=== PATIENT | female | born 1945 | race Caucasian/White ===

== ENCOUNTER 2017-01-17 07:03 | Day surgery (SDC) | payer OTHER ==
[2017-01-11 11:48] LABS: HEMATOCRIT 40.3 % (36.0-48.0); HEMOGLOBIN 14.2 g/dL (12.0-16.0)
[2017-01-11 11:56] LABS: BUN (BLOOD UREA NITROGEN) 13 MG/DL (6-23); CALCIUM, SERUM 9.1 MG/DL (8.5-10.4); CHLORIDE, SERUM 108 MMOL/L (96-112); CO2 (CARBON DIOXIDE) 29 MMOL/L (24-34); CREATININE 0.81 MG/DL (0.55-1.02); GFR AFRICAN AMERICAN 84 ML/MIN (>=60); GFR NON AFRICAN AMERICAN 73 ML/MIN (>=60); GLUCOSE, SERUM 89 MG/DL (60-99); POTASSIUM, SERUM 4.1 MMOL/L (3.5-5.3); SODIUM, SERUM 143 MMOL/L (135-148)
--- NOTE | ~2017-01-17 | OP ---
Record Of Operation [facility] [address] [place]. [address] NAME: DANIAL RAMOS : 43 STATUS : [facility]#: [id number] AGE: 71 ADM/REG DATE : 01/17/17 MR#: [id number] REPORT SERV DATE: 01/18/17 DICTATED BY: BALDEMAR MARION DATE: 01/18/17 REPORT STATUS : Draft TRANSCRIBED BY: MODEvette DATE: 01/18/17 DATE OF PROCEDURE: 01/17/2017 PREOPERATIVE DIAGNOSIS: Left parotid mass. POSTOPERATIVE DIAGNOSIS: Left facial lipoma. OPERATIVE PROCEDURE PERFORMED: Partial parotidectomy without facial nerve dissection. 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 OPERATIVE PROCEDURE AND FINDINGS: After informed consent was obtained, the patient was brought to the operating room and placed on the operating table in supine position, at which point, general endotracheal anesthesia was induced by Anesthesia Service and the NIM nerve monitor was set up to monitor left orbicularis edel and orbicularis oculi muscles. At this point, the left face was prepped and draped in a standard sterile fashion and was infiltrated with approximately 5 mL of 2% lidocaine with 1:100,000 epinephrine and a 15 blade scalpel was used to make an incision in a preauricular skin crease and overlying the left neck mass. Skin flap was elevated by leaving fat up onto the skin flap, as well as fat down onto the parotid fascia. Soft tissue mass was identified at the posterior edge of the parotid, specifically in the parotid tail region. A small cuff parotid tissue, as well as dissection around this soft tissue mass was performed with a scissor and a bipolar cautery. The mass was sent to pathology where it was identified as a lipoma. Given the benign nature of the pathology, as well as there was felt to be no additional need for resection of tissue at this time. Wound was closed in multiple layers consisting of deep Vicryl suture followed by closure of the skin with plain gut. The patient was turned back toward anesthesia, aroused from anesthesia, and taken to the postanesthesia care unit in satisfactory condition. COMPLICATIONS: None. ESTIMATED BLOOD LOSS: Less than 5 mL. IV FLUIDS: Per anesthesia. DLA/MODL Baldemar Marion M.D. / [id number] Record Of Operation [address] [place] [address] NAME: DANIAL RAMOS : 43 STATUS : [facility] PAT#: [id number] AGE: 71 ADM/REG DATE : 01/17/17 MR#: [id number] REPORT SERV DATE: 01/18/17 DICTATED BY: BALDEMAR MARION DATE: 01/18/17 REPORT STATUS : Draft TRANSCRIBED BY: TATIANA DATE: 01/18/17 CC: Kristin Kelley M.D.
[~2017-01-17 07:03] MED LIST: ADVIL PO; CLARIT10 PO; EXCEDRINTB PO; FISH-EPA1000 MG PO; MULTIPLE VIT PO; SYN1 PO; TRAVATAN OPH; VITD PO; ZYRTEC ALLGY10 MG PO
== END 2017-01-17 14:19 | disposition home or self-care (01) ==
LOC: SDC 07:03
PROVIDERS: Otolaryngology
PROC: 0CBC0ZZ Excision of Left Parotid Duct, Open Approach (ICD-10-PCS; principal; 2017-01-17 08:15)
DX: D17.39 Benign lipomatous neoplasm of skin and subcutaneous tissue of other sites (principal); E03.9 Hypothyroidism, unspecified; Z87.891 Personal history of nicotine dependence; M19.90 Unspecified osteoarthritis, unspecified site; L30.9 Dermatitis, unspecified; Z79.899 Other long term (current) drug therapy; Z98.890 Other specified postprocedural states
CPT/HCPCS: 80048; 85014; 85018; 88304; 88307; 88333; 93005; J0690; J2250; J2405; J2710; J3010